=== PATIENT | female | born 1955 | race American Indian/Alaskan Native ===

== ENCOUNTER 2017-10-04 22:48 | Emergency (ER) | payer SELFPAY | END 2017-10-05 | disposition left against medical advice (07) | LOC: ED 22:48 | DX: Z53.21 Procedure and treatment not carried out due to patient leaving prior to being seen by health care provider (principal) ==

== ENCOUNTER 2017-10-06 13:59 | Emergency (ER) | payer OTHER ==
[2017-10-06 16:08] LABS: Basophils # (Auto) 0.1 K/mm3 (0.0-0.1); Basophils % (Auto) 1.1 % (0.0-1.8); Eosinophils # (Auto) 0.1 K/mm3 (0.0-0.4); Eosinophils % (Auto) 2.7 % (0.0-4.3); Hematocrit 43.5 % (30.3-42.9); Hemoglobin 13.9 gm/dl (10.1-14.3); Lymphocytes # (Auto) 2.5 K/mm3 (1.2-5.4); Lymphocytes % (Auto) 49.7 % (13.4-35.0); Mean Corpuscular HGB Conc 32 % (30-34); Mean Corpuscular Hemoglobin 26 pg (28-32); Mean Corpuscular Volume 82 fl (79-97); Monocytes # (Auto) 0.4 K/mm3 (0.0-0.8); Monocytes % (Auto) 8.6 % (0.0-7.3); Platelet Count 211 K/mm3 (140-440); Red Blood Count 5.29 M/mm3 (3.65-5.03); Red Cell Distribution Width 15.1 % (13.2-15.2)
[2017-10-06 16:27] LABS: BUN/Creatinine Ratio 26; Blood Urea Nitrogen 21 mg/dL (7-17); Calcium 10.6 mg/dL (8.4-10.2); Hemolysis Index 13
[2017-10-07] MEDS ORDERED: CATAPRES PO ONE (01:38)
--- NOTE | 2017-10-07 02:16 | Emergency Department Report ---
HPI - General Chief Complaint: Dizziness Time Seen by Provider: 10/07/17 01:53 - HPI HPI: [facility] [address] The patient is a 62-year-old female presenting with a chief complaint of body aches and dizziness. The patient states for 1.5 week she's had intermittent dizziness that worsens when standing. Patient also admits to an intermittent headache. The patient states for 5 days she's had diffuse body aches. Patient denies any preceding trauma, fever nausea or vomiting. Patient denies any sick contacts. The patient states she has been compliant with metoprolol but believes it is not "strong enough." Location: [See above] Duration: [See above] Quality: Dizziness Severity: Moderate Modifying factors: [see above] Context: [see above] Mode of transportation: [not driving] ED Past Medical Hx - Past Medical History Previous Medical History?: Yes Hx Hypertension: Yes Additional medical history: high cholesterol - Surgical History Past Surgical History?: Yes Additional Surgical History: tubal ligation - Family History Family history: no significant - Social History Smoking Status: Never Smoker Substance Use Type: None (denies illicit drug use) - Medications Home Medications: Home Medications Medication Instructions Recorded Confirmed Last Taken Type Atorvastatin Calcium 10 mg PO QHS 10/07/17 10/07/17 Unknown History Cyclobenzaprine [Flexeril] 10 mg PO TID PRN #10 tablet 10/07/17 Unknown Rx Ibuprofen [Motrin 800 MG tab] 800 mg PO Q8HR PRN #20 tablet 10/07/17 Unknown Rx Metoprolol Xl [Metoprolol 25 mg PO QDAY 10/07/17 10/07/17 Unknown History SUCCINATE ER TAB] amLODIPine [Norvasc] 5 mg PO DAILY #90 tab 10/07/17 Unknown Rx ED Review of Systems ROS: Stated complaint: BODY ACHES/DIZZINESS Other details as noted in HPI Musculoskeletal: myalgia Neurological: headache, other (dizziness) Physical Exam - Physical Exam Vital Signs: Vital Signs 10/06/17 10/06/17 10/07/17 15:43 23:29 01:34 Temperature 98.2 F 98.1 F 97.6 F Pulse Rate 82 65 70 Respiratory 18 18 18 Rate Blood Pressure 191/106 189/112 Blood Pressure 200/101 [Left] O2 Sat by Pulse 97 100 98 Oximetry 10/07/17 10/07/17 01:43 01:44 Temperature Pulse Rate 70 Respiratory 18 Rate Blood Pressure 200/101 Blood Pressure [Left] O2 Sat by Pulse 98 Oximetry Physical Exam: GENERAL: The patient is well-developed well-nourished female lying on stretcher not appearing to be in acute distress. [] HEENT: Normocephalic. Atraumatic. Extraocular motions are intact. Patient has moist mucous membranes. No nystagmus NECK: Supple. No meningitic signs are noted. There is no adenopathy noted. CHEST/LUNGS: Clear to auscultation. There is no respiratory distress noted. HEART/CARDIOVASCULAR: Regular. There is no tachycardia. There is no gallop rub or murmur. ABDOMEN: Abdomen is soft, nontender. Patient has normal bowel sounds. There is no abdominal distention. SKIN: There is no rash. There is no edema. There is no diaphoresis. NEURO: The patient is awake, alert, and oriented. The patient is cooperative. The patient has no focal neurologic deficits. The patient has normal speech. Cranial nerves II through XII grossly intact, no drift MUSCULOSKELETAL: There is no evidence of acute injury. ED Course Vital Signs 10/06/17 10/06/17 10/07/17 15:43 23:29 01:34 Temperature 98.2 F 98.1 F 97.6 F Pulse Rate 82 65 70 Respiratory 18 18 18 Rate Blood Pressure 191/106 189/112 Blood Pressure 200/101 [Left] O2 Sat by Pulse 97 100 98 Oximetry 10/07/17 10/07/17 01:43 01:44 Temperature Pulse Rate 70 Respiratory 18 Rate Blood Pressure 200/101 Blood Pressure [Left] O2 Sat by Pulse 98 Oximetry ED Medical Decision Making - Lab Data Result diagrams: 10/06/17 15:53 10/06/17 15:55 Laboratory Tests 10/06/17 10/06/17 10/07/17 15:53 15:55 02:28 WBC 5.1 RBC 5.29 H Hgb 13.9 Hct 43.5 H MCV 82 MCH 26 L MCHC 32 RDW 15.1 Plt Count 211 Lymph % (Auto) 49.7 H [place] % (Auto) 8.6 H Eos % (Auto) 2.7 Baso % (Auto) 1.1 Lymph # 2.5 [place] # 0.4 Eos # 0.1 Baso # 0.1 Seg Neutrophils % 37.9 L Seg Neutrophils # 1.9 Sodium 143 Potassium 4.2 Chloride 102.8 Carbon Dioxide 23 Anion Gap 21 BUN 21 H Creatinine 0.8 Estimated GFR > 60 BUN/Creatinine Ratio 26 Glucose 90 Calcium 10.6 H Total Creatine Kinase 218 H CK-MB (CK-2) 5.2 H CK-MB (CK-2) Rel Index 2.3 Troponin T < 0.010 - Radiology Data Radiology results: report reviewed (CT head), image reviewed (CT head) FINAL REPORT PROCEDURE: CT HEAD/BRAIN WO CON TECHNIQUE: Computerized tomography of the head was performed without contrast material. HISTORY: SORIANO COMPARISON: No prior studies are available for comparison. FINDINGS: Skull and scalp: Normal. Paranasal sinuses: Normal. Ventricles and subarachnoid spaces: There is mild central and cortical atrophy. There is no hydrocephalus or asymmetry.. Cerebrum: No evidence of hemorrhage, acute infarction or mass. There is chronic periventricular deep white matter ischemic gliosis. Cerebellum and brainstem: No evidence of hemorrhage, acute infarction or mass. Vasculature: Normal. Comments: None. IMPRESSION: There is no acute intracranial abnormality. Transcribed By: CO Dictated By: SARAH CÁRDENAS MD Electronically Authenticated By: SARAH CÁRDENAS MD Signed Date/Time: 10/06/172309 DD/ 09 TD/TT: 10/06/172309 - Differential Diagnosis hypertensive urgency, vertigo, ICH, Critical care attestation.: If time is entered above; I have spent that time in minutes in the direct care of this critically ill patient, excluding procedure time. ED Disposition Clinical Impression: Hypertension, Dizziness Disposition: - TO HOME OR SELFCARE Is pt being admited?: No Does the pt Need Aspirin: No Condition: Stable Instructions: Hypertension (ED) Additional Instructions: Return to the emergency department immediately should you develop worsening symptoms, fever, inability to tolerate food or liquid or any other concerns. Prescriptions: amLODIPine [Norvasc] 5 mg PO DAILY #90 tab Cyclobenzaprine [Flexeril] 10 mg PO TID PRN #10 tablet PRN Reason: Muscle Spasm Ibuprofen [Motrin 800 MG tab] 800 mg PO Q8HR PRN #20 tablet PRN Reason: Pain Referrals: SARAHY ARGUETA JR, MD [Staff Physician] - 3-5 Days (Dr. Argueta is a primary physician. Please follow up in for further evaluation) Time of Disposition: 03:24
[2017-10-07] MEDS ORDERED: NACL 0.9% 1000 ML 1,000 ML IV ONE (03:00)
[2017-10-07 03:04] LABS: Creatine Kinase MB 5.2 ng/mL (0.0-4.0)
--- NOTE | 2017-10-07 03:14 | Cat Scan Report ---
FINAL REPORT PROCEDURE: CT HEAD/BRAIN WO CON TECHNIQUE: Computerized tomography of the head was performed without contrast material. HISTORY: SORIANO COMPARISON: No prior studies are available for comparison. FINDINGS: Skull and scalp: Normal. Paranasal sinuses: Normal. Ventricles and subarachnoid spaces: There is mild central and cortical atrophy. There is no hydrocephalus or asymmetry.. Cerebrum: No evidence of hemorrhage, acute infarction or mass. There is chronic periventricular deep white matter ischemic gliosis. Cerebellum and brainstem: No evidence of hemorrhage, acute infarction or mass. Vasculature: Normal. Comments: None. IMPRESSION: There is no acute intracranial abnormality.
[2017-10-07] MEDS ORDERED: NACL 0.9% 1000 ML 1,000 ML ONE ×2 (03:19→03:48)
[2017-10-07] MEDS ORDERED: NORVASC PO ONE (05:34)
[2017-10-07 06:22] VITALS: BP 142/82
== END 2017-10-07 06:21 | disposition home or self-care (01) ==
LOC: ED 13:59
DX: I10 Essential (primary) hypertension (principal); R42 Dizziness and giddiness; E78.5 Hyperlipidemia, unspecified
CPT/HCPCS: 36415; 70450; 80048; 82550; 82553; 84484; 85025; 93005; 93010; 96360; 99284; J7030

== ENCOUNTER 2017-10-17 13:23 | Emergency (ER) | payer OTHER ==
[2017-10-17 14:25] VITALS: BP 166/96
== END 2017-10-17 18:40 | disposition left against medical advice (07) ==
LOC: ED 13:23
DX: I10 Essential (primary) hypertension (principal); Z53.21 Procedure and treatment not carried out due to patient leaving prior to being seen by health care provider

== ENCOUNTER 2017-10-18 10:24 | Emergency (ER) | payer SELFPAY ==
[2017-10-18 12:35] LABS: Basophils % (Auto) 0.8 % (0.0-1.8); Eosinophils # (Auto) 0.1 K/mm3 (0.0-0.4); Eosinophils % (Auto) 3.2 % (0.0-4.3); Hematocrit 41.5 % (30.3-42.9); Hemoglobin 13.5 gm/dl (10.1-14.3); Lymphocytes # (Auto) 2.2 K/mm3 (1.2-5.4); Lymphocytes % (Auto) 49.9 % (13.4-35.0); Mean Corpuscular HGB Conc 33 % (30-34); Mean Corpuscular Hemoglobin 27 pg (28-32); Mean Corpuscular Volume 83 fl (79-97); Monocytes # (Auto) 0.4 K/mm3 (0.0-0.8); Monocytes % (Auto) 9.7 % (0.0-7.3); Platelet Count 201 K/mm3 (140-440); Red Blood Count 5.02 M/mm3 (3.65-5.03); Red Cell Distribution Width 14.6 % (13.2-15.2)
[2017-10-18 12:49] LABS: Alanine Aminotransferase 23 units/L (7-56); Albumin 4.6 g/dL (3.9-5); BUN/Creatinine Ratio 38; Blood Urea Nitrogen 19 mg/dL (7-17); Hemolysis Index 7
[2017-10-18 13:06] LABS: Creatine Kinase MB 9.6 ng/mL (0.0-4.0)
[2017-10-18 23:23] VITALS: BP 158/85
--- NOTE | 2017-10-18 23:56 | Emergency Department Report ---
ED General Adult HPI - General Chief complaint: Medical Clearance Stated complaint: DIZZINESS/BLOOD PRESSURE Time Seen by Provider: 10/18/17 23:31 Source: patient Mode of arrival: Ambulatory Limitations: No Limitations - History of Present Illness Initial comments: This is a pleasant 62-year-old female who ran out of her metoprolol and was put on amlodipine recently. She states that this is causing her to become dizzy and she "does not like it." She would like to be placed back on her metoprolol. She does complain of dizziness but no chest pain no other symptoms at this time. -: Gradual, week(s) (1) Radiation: non-radiation Severity scale (0 -10): 0 Consistency: intermittent Improves with: none Worsens with: none Associated Symptoms: denies other symptoms Treatments Prior to Arrival: none - Related Data Home Medications Medication Instructions Recorded Confirmed Last Taken Atorvastatin Calcium 10 mg PO QHS 10/07/17 10/07/17 Unknown Metoprolol Xl [Metoprolol 25 mg PO QDAY 10/07/17 10/07/17 Unknown SUCCINATE ER TAB] Previous Rx's Medication Instructions Recorded Last Taken Type Cyclobenzaprine [Flexeril] 10 mg PO TID PRN #10 tablet 10/07/17 Unknown Rx Ibuprofen [Motrin 800 MG tab] 800 mg PO Q8HR PRN #20 tablet 10/07/17 Unknown Rx amLODIPine [Norvasc] 5 mg PO DAILY #90 tab 10/07/17 Unknown Rx Metoprolol Xl [Metoprolol 50 mg PO QDAY 30 Days #30 tablet 10/19/17 Unknown Rx SUCCINATE ER TAB] Allergies Allergy/AdvReac Type Severity Reaction Status Date / Time No Known Allergies Allergy Verified 10/06/17 15:43 ED Review of Systems ROS: Stated complaint: DIZZINESS/BLOOD PRESSURE Other details as noted in HPI Constitutional: no symptoms reported. denies: chills, fever Eyes: denies: eye pain, eye discharge, vision change ENT: denies: ear pain, throat pain Respiratory: no symptoms reported. denies: cough, shortness of breath, wheezing Cardiovascular: as per HPI. denies: chest pain, palpitations Endocrine: no symptoms reported Gastrointestinal: denies: abdominal pain, nausea, diarrhea Genitourinary: denies: urgency, dysuria, discharge Musculoskeletal: denies: back pain, joint swelling, arthralgia Skin: denies: rash, lesions Neurological: denies: headache, weakness, paresthesias Psychiatric: denies: anxiety, depression Hematological/Lymphatic: denies: easy bleeding, easy bruising ED Past Medical Hx - Past Medical History Previous Medical History?: Yes Hx Hypertension: Yes Additional medical history: high cholesterol - Surgical History Past Surgical History?: No Additional Surgical History: tubal ligation - Social History Smoking Status: Never Smoker Substance Use Type: None - Medications Home Medications: Home Medications Medication Instructions Recorded Confirmed Last Taken Type Atorvastatin Calcium 10 mg PO QHS 10/07/17 10/07/17 Unknown History Cyclobenzaprine [Flexeril] 10 mg PO TID PRN #10 tablet 10/07/17 Unknown Rx Ibuprofen [Motrin 800 MG tab] 800 mg PO Q8HR PRN #20 tablet 10/07/17 Unknown Rx Metoprolol Xl [Metoprolol 25 mg PO QDAY 10/07/17 10/07/17 Unknown History SUCCINATE ER TAB] amLODIPine [Norvasc] 5 mg PO DAILY #90 tab 10/07/17 Unknown Rx Metoprolol Xl [Metoprolol 50 mg PO QDAY 30 Days #30 tablet 10/19/17 Unknown Rx SUCCINATE ER TAB] ED Physical Exam - General Limitations: No Limitations General appearance: alert, in no apparent distress - Head Head exam: Present: atraumatic - Eye Eye exam: Present: normal appearance, PERRL, EOMI - ENT ENT exam: Present: mucous membranes moist - Neck Neck exam: Present: normal inspection - Respiratory Respiratory exam: Present: normal lung sounds bilaterally. Absent: respiratory distress - Cardiovascular Cardiovascular Exam: Present: regular rate, normal rhythm. Absent: systolic murmur, diastolic murmur, rubs, gallop - GI/Abdominal GI/Abdominal exam: Present: soft, normal bowel sounds - Extremities Exam Extremities exam: Present: normal inspection - Back Exam Back exam: Present: normal inspection - Neurological Exam Neurological exam: Present: alert, oriented X3 - Psychiatric Psychiatric exam: Present: normal affect, normal mood - Skin Skin exam: Present: warm, dry, intact, normal color. Absent: rash ED Course Vital Signs 10/18/17 10/18/17 10:43 23:22 Temperature 98.1 F Pulse Rate 75 79 Respiratory 18 16 Rate Blood Pressure 176/91 Blood Pressure 158/85 [Left] O2 Sat by Pulse 100 100 Oximetry ED Medical Decision Making - Lab Data Result diagrams: 10/18/17 12:19 10/18/17 12:19 Critical care attestation.: If time is entered above; I have spent that time in minutes in the direct care of this critically ill patient, excluding procedure time. ED Disposition Clinical Impression: Hypertension Qualifiers: Hypertension type: essential hypertension Qualified Code(s): I10 - Essential ( primary) hypertension Disposition: TO HOME OR SELFCARE Is pt being admited?: No Does the pt Need Aspirin: No Condition: Stable Instructions: Hypertension (ED) Additional Instructions: Rest, fluids, follow-up with your primary care doctor. Return as needed. Call 911 if you think you having a life-threatening emergency. Prescriptions: Metoprolol Xl [Metoprolol SUCCINATE ER TAB] 50 mg PO QDAY 30 Days #30 tablet Referrals: ARANZA FRANCIS MD [Primary Care Provider] - 3-5 Days
[2017-10-19 00:27] LABS: Bilirubin,Urine NEG (Negative); Blood,Urine SM (Negative); Color,Urine Yellow (Yellow); Mucus,Urine FEW /HPF; Nitrite,Urine NEG (Negative); Protein,Urine <15 mg/dL mg/dL (Negative); Urobilinogen,Urine < 2.0 mg/dL (<2.0)
== END 2017-10-19 01:07 | disposition home or self-care (01) ==
LOC: ED 10:24
DX: I10 Essential (primary) hypertension (principal); E78.00 Pure hypercholesterolemia, unspecified
CPT/HCPCS: 36415; 80053; 81001; 82550; 82553; 84484; 85025; 93005; 93010; 99283

== ENCOUNTER 2018-01-02 06:34 | Emergency (ER) | payer SELFPAY ==
[2018-01-02] MEDS ORDERED: ANTIVERT PO ONE (10:50)
--- NOTE | 2018-01-02 10:55 | Emergency Department Report ---
HPI - General Chief Complaint: Anxiety Time Seen by Provider: 01/02/18 10:44 - HPI HPI: Room 26 The patient is a 62-year-old female presenting with chief complaint of dizziness. The patient states she's had a constant dizziness for 3 weeks. The patient states for 3 weeks she has had a constant dizziness. Patient denies preceding trauma. Patient denies any history of fever or headache. Patient denies nausea/vomiting. Patient denies chest pain or shortness of breath. The patient states she's also felt "nervous" for 3 weeks Location: Head, see above Duration: 3 weeks Quality: Dizziness Severity: Moderate Modifying factors: [see above] Context: [see above] Mode of transportation: Unknown ED Past Medical Hx - Past Medical History Previous Medical History?: Yes Hx Hypertension: Yes Additional medical history: high cholesterol - Surgical History Past Surgical History?: Yes Additional Surgical History: tubal ligation - Family History Family history: no significant - Social History Smoking Status: Never Smoker Substance Use Type: None (denies illicit drug use) - Medications Home Medications: Home Medications Medication Instructions Recorded Confirmed Last Taken Type Atorvastatin Calcium 10 mg PO QHS 10/07/17 10/07/17 Unknown History Cyclobenzaprine [Flexeril] 10 mg PO TID PRN #10 tablet 10/07/17 Unknown Rx Ibuprofen [Motrin 800 MG tab] 800 mg PO Q8HR PRN #20 tablet 10/07/17 Unknown Rx Metoprolol Xl [Metoprolol 25 mg PO QDAY 10/07/17 10/07/17 Unknown History SUCCINATE ER TAB] amLODIPine [Norvasc] 5 mg PO DAILY #90 tab 10/07/17 Unknown Rx Meclizine [Antivert] 25 mg PO TID PRN #20 tablet 01/02/18 Unknown Rx Metoprolol Xl [Metoprolol 50 mg PO QDAY 30 Days #30 tablet 01/02/18 Unknown Rx SUCCINATE ER TAB] ED Review of Systems ROS: Stated complaint: ANXIETY ATTACK Other details as noted in HPI Constitutional: denies: fever Eyes: denies: eye pain ENT: denies: throat pain Respiratory: denies: shortness of breath Cardiovascular: denies: chest pain Gastrointestinal: denies: abdominal pain Genitourinary: denies: dysuria Musculoskeletal: denies: back pain Neurological: other (dizziness). denies: headache Physical Exam - Physical Exam Vital Signs: Vital Signs 01/02/18 06:35 Temperature 98.1 F Pulse Rate 64 Respiratory 16 Rate Blood Pressure 183/93 O2 Sat by Pulse 99 Oximetry Physical Exam: GENERAL: The patient is well-developed well-nourished []. [] HEENT: Normocephalic. Atraumatic. Extraocular motions are intact. Patient has moist mucous membranes. No nystagmus NECK: Supple. No meningitic signs are noted. Trachea midline CHEST/LUNGS: Clear to auscultation. There is no respiratory distress noted. HEART/CARDIOVASCULAR: Regular. There is no tachycardia. There is no gallop rub or murmur. ABDOMEN: Abdomen is soft, nontender. Patient has normal bowel sounds. There is no abdominal distention. SKIN: There is no rash. There is no edema. There is no diaphoresis. NEURO: The patient is awake, alert, and oriented. The patient is cooperative. The patient has no focal neurologic deficits. The patient has normal speech. Cranial nerves II through XII grossly intact, no drift MUSCULOSKELETAL: There is no evidence of acute injury. ED Course Vital Signs 01/02/18 06:35 Temperature 98.1 F Pulse Rate 64 Respiratory 16 Rate Blood Pressure 183/93 O2 Sat by Pulse 99 Oximetry - Reevaluation(s) Reevaluation #1: 01/02/18 12:41 Patient states she is feeling improved ED Medical Decision Making - Lab Data Result diagrams: 01/02/18 11:06 01/02/18 11:06 Laboratory Tests 01/02/18 01/02/18 01/02/18 11:06 11:06 11:06 WBC 4.5 RBC 5.03 Hgb 13.9 Hct 41.5 MCV 82 MCH 28 MCHC 33 RDW 14.8 Plt Count 196 Lymph % (Auto) 51.7 H [place] % (Auto) 7.3 Eos % (Auto) 2.2 Baso % (Auto) 1.0 Lymph # 2.3 [place] # 0.3 Eos # 0.1 Baso # 0.0 Seg Neutrophils % 37.8 L Seg Neutrophils # 1.7 L D-Dimer 198.65 Sodium 139 Potassium 4.0 Chloride 100.1 Carbon Dioxide 26 Anion Gap 17 BUN 9 Creatinine 0.5 L Estimated GFR > 60 BUN/Creatinine Ratio 18 Glucose 92 Calcium 10.3 H Total Creatine Kinase 405 H CK-MB (CK-2) 6.8 H CK-MB (CK-2) Rel Index 1.6 Troponin T TSH Free T4 01/02/18 01/02/18 11:06 11:06 WBC RBC Hgb Hct MCV MCH MCHC RDW Plt Count Lymph % (Auto) [place] % (Auto) Eos % (Auto) Baso % (Auto) Lymph # Band[place] # Eos # Baso # Seg Neutrophils % Seg Neutrophils # D-Dimer Sodium Potassium Chloride Carbon Dioxide Anion Gap BUN Creatinine Estimated GFR BUN/Creatinine Ratio Glucose Calcium Total Creatine Kinase CK-MB (CK-2) CK-MB (CK-2) Rel Index Troponin T < 0.010 TSH 0.452 Free T4 1.21 - EKG Data -: EKG Interpreted by In EKG shows normal: sinus rhythm Rate: normal - EKG Data When compared to previous EKG there are: previous EKG unavailable Interpretation: nonspecific ST-T wave reinaldo (T-wave inversion in leads V1, V2) - Radiology Data Radiology results: report reviewed (CT head), image reviewed (CT head) [place] [address] Cat Scan Report Signed Patient: LEANDRO TAYLOR MR#: [id number] : 1955 Acct:[id number] Age/Sex: 62 / F ADM Date: 01/02/18 Loc: ED Attending Dr: Ordering Physician: MAGALIE FISHER MD Date of Service: 01/02/18 Procedure(s): CT head/brain wo con Accession Number(s): [id number] cc: MAGALIE FISHER MD FINAL REPORT EXAM: CT HEAD/BRAIN WO CON HISTORY: dizziness TECHNIQUE: CT examination of the head without IV contrast PRIORS: 10/07/2017 FINDINGS: Stable chronic appearing small focus of subtle volume loss and encephalomalacia in the superomedial aspect of the left occipital lobe. No acute air-fluid level visualized in the included air-filled sinuses. Bone windows demonstrate no acute fracture. There is again slight ventricular and sulcal prominence compatible with global cerebrocortical atrophy. Low attenuation regions in the cerebral white matter, while nonspecific, are again slight and usually attributed to chronic ischemic gliosis. It can occur secondary to the normal aging process, hypertension, or arterial sclerotic vascular disease. The differential includes demyelination in the appropriate clinical setting. The brain contains no mass, mass effect, hemorrhage, or acute infarct. There is no extra-axial intracranial bleed or brain bleed. There is no midline shift. 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 ED Disposition Clinical Impression: Dizziness, Hypertension Disposition: - TO HOME OR SELFCARE Is pt being admited?: No Does the pt Need Aspirin: No Condition: Stable Instructions: Hypertension (ED), Vertigo (ED) Additional Instructions: Return to the emergency department immediately should you develop worsening symptoms, fever, inability to tolerate food or liquid or any other concerns. Prescriptions: Meclizine [Antivert] 25 mg PO TID PRN #20 tablet PRN Reason: Vertigo Metoprolol Xl [Metoprolol SUCCINATE ER TAB] 50 mg PO QDAY 30 Days #30 tablet Referrals: [facility] [Outside] - [place] (Please follow up with the [facility] for further evaluation of your blood pressure and to be established as a patient) RUSSELL APARICIO MD [Staff Physician] - 3-5 Days (Dr. Aparicio is a neurologist. Please follow up with him for further evaluation) Time of Disposition: 12:45
[2018-01-02 11:23] LABS: Eosinophils # (Auto) 0.1 K/mm3 (0.0-0.4); Eosinophils % (Auto) 2.2 % (0.0-4.3); Hematocrit 41.5 % (30.3-42.9); Hemoglobin 13.9 gm/dl (10.1-14.3); Lymphocytes # (Auto) 2.3 K/mm3 (1.2-5.4); Lymphocytes % (Auto) 51.7 % (13.4-35.0); Mean Corpuscular HGB Conc 33 % (30-34); Mean Corpuscular Hemoglobin 28 pg (28-32); Mean Corpuscular Volume 82 fl (79-97); Monocytes # (Auto) 0.3 K/mm3 (0.0-0.8); Monocytes % (Auto) 7.3 % (0.0-7.3); Platelet Count 196 K/mm3 (140-440); Red Blood Count 5.03 M/mm3 (3.65-5.03); Red Cell Distribution Width 14.8 % (13.2-15.2)
[2018-01-02 11:36] LABS: Creatine Kinase MB 6.8 ng/mL (0.0-4.0)
--- NOTE | 2018-01-02 11:38 | Cat Scan Report ---
FINAL REPORT EXAM: CT HEAD/BRAIN WO CON HISTORY: dizziness TECHNIQUE: CT examination of the head without IV contrast PRIORS: 10/07/2017 FINDINGS: Stable chronic appearing small focus of subtle volume loss and encephalomalacia in the superomedial aspect of the left occipital lobe. No acute air-fluid level visualized in the included air-filled sinuses. Bone windows demonstrate no acute fracture. There is again slight ventricular and sulcal prominence compatible with global cerebrocortical atrophy. Low attenuation regions in the cerebral white matter, while nonspecific, are again slight and usually attributed to chronic ischemic gliosis. It can occur secondary to the normal aging process, hypertension, or arterial sclerotic vascular disease. The differential includes demyelination in the appropriate clinical setting. The brain contains no mass, mass effect, hemorrhage, or acute infarct. There is no extra-axial intracranial bleed or brain bleed. There is no midline shift. IMPRESSION: No acute CVA, intracranial bleed, or brain mass Chronic appearing small focus of subtle volume loss and encephalomalacia in the superomedial left occipital lobe is unchanged, which may reflect prior small chronic infarct
[2018-01-02 11:39] LABS: BUN/Creatinine Ratio 18; Blood Urea Nitrogen 9 mg/dL (7-17); Calcium 10.3 mg/dL (8.4-10.2); Hemolysis Index 31
[2018-01-02] MEDS ORDERED: CATAPRES PO ONE (11:42)
[2018-01-02 11:46] LABS: Free T4 (Free Thyroxine) 1.21 ng/dL (0.76-1.46)
[2018-01-02 12:36] VITALS: BP 165/82
== END 2018-01-02 12:55 | disposition home or self-care (01) ==
LOC: ED 06:34
DX: R42 Dizziness and giddiness (principal); I10 Essential (primary) hypertension; E78.00 Pure hypercholesterolemia, unspecified; Z98.51 Tubal ligation status
CPT/HCPCS: 36415; 70450; 80048; 82550; 82553; 84439; 84443; 84484; 85025; 85379; 93005; 93010

== ENCOUNTER 2018-05-18 14:08 | Emergency (ER) | payer SELFPAY ==
[2018-05-18] MEDS ORDERED: ANTIVERT PO ONE (16:01)
[2018-05-18] MEDS ORDERED: TYLENOL PO ONE (16:01)
--- NOTE | 2018-05-18 16:01 | Emergency Department Report ---
ED ENT HPI - General Chief complaint: Earache Stated complaint: DIZZY RT EAR ACHE/HEAD ACHE Time Seen by Provider: 05/18/18 15:47 Source: patient, family Mode of arrival: Ambulatory Limitations: No Limitations - History of Present Illness Initial comments: This is a 63-year-old female here reports that she has right ear pain 5 days. Patient has a history of headaches and she says headache started when earache started. She is also had dizziness this been managed by her primary care physician for months. She said they gave her Antivert a recent appointment but it did not take her dizziness away. Denies any nausea or vomiting. Denies any head injury or ear trauma. Pain is 6-9 out of 10 to right ear radiate into the right side of her head. Denies any visual difficulties. Denies any nasal congestion or runny nose, cough, shortness of breath or chest pain. Denies any fever [place] [address] and she is on metoprolol XL which she says she has to take today. Last CT scan 5 years ago was within normal limits. Pain is achy located to right ear radiograph right had, worse with touch and noise and no alleviating factors. She took Tylenol but it is not working. MD complaint: ear pain Onset/Timin -: days(s) Location: R ear Severity: severe Severity scale (0 -10): 9 Quality: aching Consistency: constant Improves with: none Worsens with: none Associated Symptoms: denies: fever, cough, gum swelling, toothache, pain with swallowing, sore throat, tinnitus, hearing loss, discharge from ear, rhinorrhea - Related Data Home Medications Medication Instructions Recorded Confirmed Last Taken Atorvastatin Calcium 10 mg PO QHS 10/07/17 10/07/17 Unknown Metoprolol Xl [Metoprolol 25 mg PO QDAY 10/07/17 10/07/17 Unknown SUCCINATE ER TAB] Previous Rx's Medication Instructions Recorded Last Taken Type Cyclobenzaprine [Flexeril] 10 mg PO TID PRN #10 tablet 10/07/17 Unknown Rx Ibuprofen [Motrin 800 MG tab] 800 mg PO Q8HR PRN #20 tablet 10/07/17 Unknown Rx amLODIPine [Norvasc] 5 mg PO DAILY #90 tab 10/07/17 Unknown Rx Metoprolol Xl [Metoprolol 50 mg PO QDAY 30 Days #30 tablet 04/12/18 Unknown Rx SUCCINATE ER TAB] Cetirizine HCl [Zyrtec] 10 mg PO QAM 14 Days #14 tablet 05/18/18 Unknown Rx Meclizine [Antivert] 25 mg PO TID PRN #12 tablet 05/18/18 Unknown Rx Neomy/Polymyx B/Hc (Otic) Soln 4 drops OTIC TID 7 Days #1 bottle 05/18/18 Unknown Rx [Cortisporin (Otic) Soln] traMADol [Ultram] 50 mg PO Q6HR PRN #15 tablet 05/18/18 Unknown Rx Allergies Allergy/AdvReac Type Severity Reaction Status Date / Time No Known Allergies Allergy Verified 10/06/17 15:43 ED Dental HPI - General Chief complaint: Earache Stated complaint: DIZZY RT EAR ACHE/HEAD ACHE Time Seen by Provider: 05/18/18 15:47 Source: patient Mode of arrival: Ambulatory Limitations: No Limitations - Related Data Home Medications Medication Instructions Recorded Confirmed Last Taken Atorvastatin Calcium 10 mg PO QHS 10/07/17 10/07/17 Unknown Metoprolol Xl [Metoprolol 25 mg PO QDAY 10/07/17 10/07/17 Unknown SUCCINATE ER TAB] Previous Rx's Medication Instructions Recorded Last Taken Type Cyclobenzaprine [Flexeril] 10 mg PO TID PRN #10 tablet 10/07/17 Unknown Rx Ibuprofen [Motrin 800 MG tab] 800 mg PO Q8HR PRN #20 tablet 10/07/17 Unknown Rx amLODIPine [Norvasc] 5 mg PO DAILY #90 tab 10/07/17 Unknown Rx Metoprolol Xl [Metoprolol 50 mg PO QDAY 30 Days #30 tablet 01/02/18 Unknown Rx SUCCINATE ER TAB] Cetirizine HCl [Zyrtec] 10 mg PO QAM 14 Days #14 tablet 05/18/18 Unknown Rx Meclizine [Antivert] 25 mg PO TID PRN #12 tablet 05/18/18 Unknown Rx Neomy/Polymyx B/Hc (Otic) Soln 4 drops OTIC TID 7 Days #1 bottle 05/18/18 Unknown Rx [Cortisporin (Otic) Soln] traMADol [Ultram] 50 mg PO Q6HR PRN #15 tablet 05/18/18 Unknown Rx Allergies Allergy/AdvReac Type Severity Reaction Status Date / Time No Known Allergies Allergy Verified 10/06/17 15:43 ED Review of Systems ROS: Stated complaint: DIZZY RT EAR ACHE/HEAD ACHE Other details as noted in HPI Constitutional: denies: chills, fever Eyes: denies: eye pain, eye discharge, vision change ENT: ear pain. denies: throat pain, dental pain, hearing loss, congestion Respiratory: denies: cough, shortness of breath, SOB with exertion, SOB at rest , stridor, wheezing Cardiovascular: denies: chest pain, palpitations, edema, syncope Gastrointestinal: denies: abdominal pain, nausea, vomiting, diarrhea, constipation Musculoskeletal: denies: back pain, joint swelling, arthralgia Skin: denies: rash, lesions Neurological: headache. denies: weakness, numbness, paresthesias ED Past Medical Hx - Past Medical History Previous Medical History?: Yes Hx Hypertension: Yes Additional medical history: high cholesterol,CHRONIC DIZZINESS-LAST CT WITHIN 5YEARS-WNL - Surgical History Past Surgical History?: Yes Additional Surgical History: tubal ligation - Family History Family history: no significant - Social History Smoking Status: Never Smoker Substance Use Type: None - Medications Home Medications: Home Medications Medication Instructions Recorded Confirmed Last Taken Type Atorvastatin Calcium 10 mg PO QHS 10/07/17 10/07/17 Unknown History Cyclobenzaprine [Flexeril] 10 mg PO TID PRN #10 tablet 10/07/17 Unknown Rx Ibuprofen [Motrin 800 MG tab] 800 mg PO Q8HR PRN #20 tablet 10/07/17 Unknown Rx Metoprolol Xl [Metoprolol 25 mg PO QDAY 10/07/17 10/07/17 Unknown History SUCCINATE ER TAB] amLODIPine [Norvasc] 5 mg PO DAILY #90 tab 10/07/17 Unknown Rx Metoprolol Xl [Metoprolol 50 mg PO QDAY 30 Days #30 tablet 01/02/18 Unknown Rx SUCCINATE ER TAB] Cetirizine HCl [Zyrtec] 10 mg PO QAM 14 Days #14 tablet 05/18/18 Unknown Rx Meclizine [Antivert] 25 mg PO TID PRN #12 tablet 05/18/18 Unknown Rx Neomy/Polymyx B/Hc (Otic) Soln 4 drops OTIC TID 7 Days #1 bottle 05/18/18 Unknown Rx [Cortisporin (Otic) Soln] traMADol [Ultram] 50 mg PO Q6HR PRN #15 tablet 05/18/18 Unknown Rx ED Physical Exam - General Limitations: No Limitations General appearance: alert, in no apparent distress - Head Head exam: Present: atraumatic, normocephalic, normal inspection - Eye Eye exam: Present: PERRL, EOMI. Absent: normal appearance, conjunctival injection, nystagmus, periorbital swelling, periorbital tenderness Pupils: Present: normal accommodation - ENT ENT exam: Present: normal exam, normal orophraynx, mucous membranes moist, TM's normal bilaterally (bilateral TM congested without erythema), other (bilateral frontal and macular sinuses none and to palpate). Absent: normal external ear exam (right EAC with swelling and tenderness to palpate. Right tragus tender to palpate .no drainage noted.) - Expanded ENT Exam Expanded Ear exam: Present: normal external inspection TM/Canal exam: Canal Tenderness: Right TM (redness and no mastoid bone tenderness bilaterally) Mouth exam: Present: normal external inspection. Absent: drooling, trismus, muffled voice, tongue normal Teeth exam: Present: normal inspection Throat exam: Positive: normal inspection - Neck Neck exam: Present: normal inspection, full ROM, other (no C-spine tenderness). Absent: tenderness, meningismus, lymphadenopathy - Respiratory Respiratory exam: Present: normal lung sounds bilaterally. Absent: respiratory distress, chest wall tenderness - Cardiovascular Cardiovascular Exam: Present: regular rate, normal rhythm, normal heart sounds. Absent: systolic murmur, diastolic murmur - GI/Abdominal GI/Abdominal exam: Present: soft, normal bowel sounds. Absent: distended, tenderness, guarding, rebound, rigid, organomegaly, mass, bruit, pulsatile mass , hernia - Extremities Exam Extremities exam: Present: normal inspection, full ROM, normal capillary refill , other (No cce. + 2 pulses in all extremities, no neurovascular compromise). Absent: tenderness, pedal edema, joint swelling, calf tenderness - Back Exam Back exam: Present: normal inspection, full ROM, other (ambulates without any difficulties). Absent: tenderness, CVA tenderness (R), CVA tenderness (L), muscle spasm, paraspinal tenderness, vertebral tenderness, rash noted - Neurological Exam Neurological exam: Present: alert, oriented X3, normal gait, reflexes normal, other (no focal neurological deficit). Absent: motor sensory deficit - Psychiatric Psychiatric exam: Present: normal affect, normal mood - Skin Skin exam: Present: warm, dry, intact, normal color. Absent: rash ED Course Vital Signs 05/18/18 05/18/18 14:13 17:00 Temperature 98.5 F Pulse Rate 95 H Respiratory 18 18 Rate Blood Pressure 192/108 Blood Pressure 194/107 [Right] O2 Sat by Pulse 98 99 Oximetry Vital Signs 05/18/18 05/18/18 14:13 17:00 Temperature 98.5 F Pulse Rate 95 H Respiratory 18 18 Rate Blood Pressure 192/108 Blood Pressure 194/107 [Right] O2 Sat by Pulse 98 99 Oximetry Patient has not taken her medication and she is taking her metoprolol at present. - Reevaluation(s) Reevaluation #1: 05/18/18 17:24 Patient blood pressure was 192/108 upon arrival to triage area. Gave patient Tylenol 650 mg for right ear pain and Antivert's 25 mg by mouth for dizziness. Blood pressure rechecked and still rated a 194/107. She reports that her ear pain is better after Tylenol. Patient took her own metoprolol after second set of blood pressure. ED Medical Decision Making - Medical Decision Making This is a 63-year-old female here prevented she has been having bouts of dizziness for months that has been managed by her primary care physician and she recently took Antivert to date given to her appointment. She said that she is having right ear pain without any fever or chills or any loss in urine. Patient reports that previously. His radiating into her right side of her head and she stated the evaluated. Patient was seen and examined by myself. I spoke with Dr. Vang regarding patient elevated blood pressure. Blood pressure retaken and it was 194/107 from 192/108. She took her own metoprolol in emergency room after second set of blood pressure. Physical examination with normal findings except she has right EAC with redness, swelling and bilateral TM congested. Her right tragus is tender to palpate. She is asymptomatic with elevated blood pressure. I discussed the patient that she needs to keep a log of her blood pressure daily and record and takes her primary care physician with her for evaluation and adjustment of her blood pressure medication and she agrees. She was given Antivert 25 mg by mouth for dizziness which relieved her dizziness and Tylenol 650 mg by mouth for ear pain and headache and she said her pain is better. I discussed diagnosis, treatment plan and need to follow up with primary care physician and she agrees. Patient discharged home in stable condition with prescription for Antivert, Zyrtec, Ultram and Corticosporin otic. Pain is better, blood pressure is still elevated and patient just took her metoprolol and I discussed the patient is to continue to take as prescribed. Critical care attestation.: If time is entered above; I have spent that time in minutes in the direct care of this critically ill patient, excluding procedure time. ED Disposition Clinical Impression: Otalgia of right ear, Vertigo Otitis externa of right ear Qualifiers: Otitis externa type: unspecified type Chronicity: acute Qualified Code(s): H60.501 - Unspecified acute noninfective otitis externa, right ear Hypertension Qualifiers: Hypertension type: essential hypertension Qualified Code(s): I10 - Essential ( primary) hypertension Headache Qualifiers: Headache type: unspecified Headache chronicity pattern: episodic headache Intractability: not intractable Qualified Code(s): R51 - Headache Disposition: DC-01 TO HOME OR SELFCARE Is pt being admited?: No Does the pt Need Aspirin: No Condition: Stable Instructions: Otitis Externa (ED), Vertigo (ED), Acute Headache (ED), Earache ( ED), DASH Eating Plan (ED), Hypertension (ED) Additional Instructions: Please follow up with ear nose and throat Dr. Tilley as instructed Take blood pressure medication as prescribed by her primary care Your Blood pressure was elevated in the emergency room today and usually to keep a written log a few blood pressure, and record and take to primary care visit with you for evaluation and management. Follow-up discharge instructions on DASH diet Please call your primary care office tomorrow and schedule an appointment for follow-up visit in 2-3 days Return to the hospital if he developed chest pain, shortness of breath, increasing dizziness, nausea and her vomiting, headache, neck pain or stiffness , numbness or team into extremities. Take Ultram for pain but these do not drive or operate heavy machinery while taking this medication as it causes drowsiness Take Corticosporin objects solution for right ear canal infection Take Antivert for vertigo Take Zyrtec for congestion and ears Prescriptions: Cetirizine HCl [Zyrtec] 10 mg PO QAM 14 Days #14 tablet Meclizine [Antivert] 25 mg PO TID PRN #12 tablet PRN Reason: Vertigo Neomy/Polymyx B/Hc (Otic) Soln [Cortisporin (Otic) Soln] 4 drops OTIC TID 7 Days #1 bottle traMADol [Ultram] 50 mg PO Q6HR PRN #15 tablet PRN Reason: Pain Referrals: PRIMARY CARE, [Primary Care Provider] - 05/21/18 BERHANE VIEIRA MD [Staff Physician] - 2-3 Days Forms: Accompanied Note, Work/School Release Form(ED)
[2018-05-18 17:10] VITALS: BP 194/107
== END 2018-05-18 17:59 | disposition home or self-care (01) ==
LOC: ED 14:08
DX: H60.501 Unspecified acute noninfective otitis externa, right ear (principal); R42 Dizziness and giddiness; R51 Headache; I10 Essential (primary) hypertension; E78.00 Pure hypercholesterolemia, unspecified; Z98.51 Tubal ligation status
CPT/HCPCS: 99282